=== PATIENT | male | born 1990 | race African-American/Black ===

== ENCOUNTER 2017-03-05 17:49 | Emergency (ER) | payer OTHER ==
[~2017-03-05] VITALS: Ht 188 cm; Wt 80.0 kg
[2017-03-05 17:55] VITALS: BP 111/68; PULSE 72; RESP 20; TEMP 97.8; O2SAT 98
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
[2017-03-05] MEDS ORDERED: KETOROLAC TROMETHAMINE 60 MG/2 ML (IM) VIAL IM ONE (18:30)
[2017-03-05] MEDS ORDERED: ONDANSETRON ODT 4 MG TAB PO ONE (18:30)
== END 2017-03-05 18:59 | disposition home or self-care (01) ==
LOC: NEPK 17:49
DX: S09.90XA Unspecified injury of head, initial encounter (principal); V43.52XA Car driver injured in collision with other type car in traffic accident, initial encounter; Y92.410 Unspecified street and highway as the place of occurrence of the external cause
CPT/HCPCS: 70450; 96372; 99285; J1885

== ENCOUNTER 2017-03-22 11:16 | Emergency (ER) | payer SELFPAY ==
[~2017-03-22] VITALS: Ht 182.9 cm; Wt 81.5 kg
[2017-03-22 11:20] VITALS: BP 145/78; PULSE 96; RESP 15; TEMP 98.2; O2SAT 98
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
[2017-03-22] MEDS ORDERED: diphenhydrAMINE HCL 50 MG CAP PO ONE (12:30)
[2017-03-22] MEDS ORDERED: DEXAMETHASONE SOD PHOS 20 MG/5 ML VIAL IM ONE (12:30)
[2017-03-22] MEDS ORDERED: FAMOTIDINE 20 MG TAB PO ONE (12:30)
[2017-03-22] MEDS ORDERED: MEDR4PAK PO (12:36)
[2017-03-22] MEDS ORDERED: FAMO1TAB73 PO (12:36)
[2017-03-22] MEDS ORDERED: CLAR10CA3 PO (12:36)
== END 2017-03-22 13:23 | disposition home or self-care (01) ==
LOC: NEPD 11:16
DX: L25.9 Unspecified contact dermatitis, unspecified cause (principal)
CPT/HCPCS: 96372; 99284; J1100; Q0163

== ENCOUNTER 2017-08-02 09:24 | Emergency (ER) | payer SELFPAY ==
[~2017-08-02] VITALS: Ht 182.9 cm; Wt 79.5 kg
[~2017-08-02 09:24] MED LIST: CLAR10CA3 PO; FAMO1TAB73 PO; MEDR4PAK PO
[2017-08-02 09:26] VITALS: BP 114/68; PULSE 65; RESP 14; TEMP 97.8; O2SAT 100
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
[2017-08-02] MEDS ORDERED: PRED-503 PO (10:14)
[2017-08-02] MEDS ORDERED: AMOX875T PO (10:14)
[2017-08-02] MEDS ORDERED: BACT800T5 PO (10:14)
[2017-08-02] MEDS ORDERED: predniSONE 20 MG TAB PO ONE (10:15)
== END 2017-08-02 11:07 | disposition home or self-care (01) ==
LOC: NEPD 09:24
DX: L25.9 Unspecified contact dermatitis, unspecified cause (principal); H00.033 Abscess of eyelid right eye, unspecified eyelid; Z72.0 Tobacco use
CPT/HCPCS: 99283; J7512

== ENCOUNTER 2017-11-26 03:41 | Emergency (ER) | payer SELFPAY ==
[~2017-11-26 03:41] MED LIST changes: +AMOX875T PO; +BACT800T5 PO; -CLAR10CA3 PO; -FAMO1TAB73 PO; -MEDR4PAK PO; +PRED-503 PO
[2017-11-26 03:44] VITALS: BP 147/74; PULSE 99; RESP 20; O2SAT 98
[2017-11-26] MEDS ORDERED: SODIUM CHLOR 0.9% 1000 ML INJ 1,000 ML IV ONE (03:45)
[2017-11-26] MEDS ORDERED: PROMETHAZINE INJ 25 MG/ML VIAL IM ONE (03:45)
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
[2017-11-26 04:41] VITALS: TEMP 99
[2017-11-26 06:30] VITALS: BP 110/72; PULSE 60; RESP 16; O2SAT 99
== END 2017-11-26 06:56 | disposition home or self-care (01) ==
LOC: NEPD 03:41
DX: S00.83XA Contusion of other part of head, initial encounter (principal); Y04.0XXA Assault by unarmed brawl or fight, initial encounter; H57.12 Ocular pain, left eye; F10.129 Alcohol abuse with intoxication, unspecified
CPT/HCPCS: 70450; 70486; 96360; 96372; 99284; J2550; J7030